=== PATIENT | female | born 1950 | race Caucasian/White ===

== ENCOUNTER 2020-05-31 08:43 | Day surgery (SDC) | payer MEDICARE, BC ==
[2020-05-30 13:32] LABS: BASOPHILS % (AUTO) 0.6 % (0-1); EOSINOPHILS # (AUTO) 0.1 X10'3 (0-0.9); HEMATOCRIT 43.6 % (35.0-45.0); HEMOGLOBIN 14.1 g/dl (12.0-16.0); LYMPHOCYTES # (AUTO) 3.3 X10'3 (1.1-4.8); LYMPHOCYTES % (AUTO) 45.5 % (21-51); MEAN CORPUSCULAR HEMOGLOBIN 26.1 PG (27.0-31.0); MEAN CORPUSCULAR HGB CONC 32.3 g/dL (33.0-36.5); MEAN PLATELET VOLUME 10.3 FL (7.4-10.4); MONOCYTES # (AUTO) 0.5 X10'3 (0-0.9); MONOCYTES % (AUTO) 7.5 % (2-12); NEUTROPHILS # (AUTO) 3.3 X10'3 (1.8-7.7); NEUTROPHILS % (AUTO) 45.4 % (42-75); PLATELET COUNT 247 X10'3 (140-440); RED BLOOD COUNT 5.38 X10'6 (4.20-5.60); RED CELL DISTRIBUTION WIDTH 14.9 % (11.5-14.5); WHITE BLOOD COUNT 7.3 X10'3 (4.5-11.0)
[2020-05-30 13:43] LABS: PARTIAL THROMBOPLASTIN TIME 28 SECONDS (22-32)
[2020-05-30 13:45] LABS: ALANINE AMINOTRANSFERASE 53 U/L (12-78); ALBUMIN/GLOBULIN RATIO 1.1 (1.1-1.5); ALKALINE PHOSPHATASE 123 IU/L (46-116); ANION GAP 6 (8-16); ASPARTATE AMINO TRANSFERASE 30 U/L (10-37); BILIRUBIN,TOTAL 0.6 MG/DL (0.1-1.0); BLOOD UREA NITROGEN 9 MG/DL (7-18); BUN/CREATININE RATIO 12.3 (6.6-38.0); CHLORIDE 105 MMOL/L (99-107); CREATININE 0.73 MG/DL (0.40-0.90); GLUCOSE 95 MG/DL (70-104); POTASSIUM 3.9 MMOL/L (3.5-5.1); SODIUM 139 MMOL/L (135-145); TOTAL CARBON DIOXIDE 27.6 MMOL/L (24-32); TOTAL PROTEIN 7.7 G/DL (6.4-8.2); eGFR 79 ML/MIN
[2020-05-31] VITALS (10 sets, daily range): BP systolic 114–144; BP diastolic 61–93
[~2020-05-31] VITALS: Ht 170.2 cm; Wt 66.2 kg
[~2020-05-31 08:43] MED LIST: AMOX125S10 PO; ASPI-1009 PO; ATEN-169 PO; ESCI20TA29 PO; LEVO88TA28 PO; LOSA25TA96 PO; NITR0.4T51 SL; PRED10TA PO; ROSU20TA2 PO; TRAZ-91 PO
[2020-05-31] MEDS ORDERED: LORazepam 0.5 MG tablet PO PRN (09:05)
[2020-05-31] MEDS ORDERED: nitroGLYCERIN 0.4mg SUBLingual tab SL PRN (09:05)
[2020-05-31] MEDS ORDERED: diphenhydrAMINE 25mg capsule PO PRN (09:05)
[2020-05-31] MEDS ORDERED: normal saline 1,000 ML IV SCH (09:05)
[2020-05-31] MEDS ORDERED: NITR0.4T48 SL (09:20)
[2020-05-31] MEDS ORDERED: iron (09:20)
[2020-05-31] MEDS ORDERED: ALBU8HFA PO (09:20)
[2020-05-31] MEDS ORDERED: midazolam 2 mg/2 ml injection ONE (09:49)
[2020-05-31] MEDS ORDERED: fentaNYL/PF 50MCG/1 ML 2ML syringe ONE (09:49)
[2020-05-31] MEDS ORDERED: LIDOcaine 1% (10mg/ml)w/preservative injection 20ml MDV ONE (09:49)
[2020-05-31] MEDS ORDERED: iohexol 350 MG/ML 50ML vial IV ONE (09:50)
[2020-05-31] MEDS ORDERED: iohexol 350MG/ML 100ml bottle IV ONE (09:50)
[2020-05-31] MEDS ORDERED: HYDROcodone/acetaminophen 5mg/325mg tablet PO PRN (11:35)
[2020-05-31] MEDS ORDERED: HYDROcodone/acetaminophen 10/325mg tab PO PRN (11:35)
[2020-05-31] MEDS ORDERED: ondansetron/PF 4mg/2ml inj IV PRN (11:35)
[2020-05-31] MEDS ORDERED: proCHLORperazine 10 MG/2 ml inj IV PRN (11:35)
[2020-05-31] MEDS ORDERED: OXAZEpam 15mg capsule PO PRN (11:35)
== END 2020-05-31 16:55 | disposition home or self-care (01) ==
LOC: SSTAY O 08:43
PROVIDERS: ATTEND Internal Medicine Cardiovascular Disease
DX: R94.39 Abnormal result of other cardiovascular function study (principal); I25.10 Atherosclerotic heart disease of native coronary artery without angina pectoris; F32.9 Major depressive disorder, single episode, unspecified; G43.909 Migraine, unspecified, not intractable, without status migrainosus; K21.9 Gastro-esophageal reflux disease without esophagitis; F41.1 Generalized anxiety disorder; I44.7 Left bundle-branch block, unspecified; J44.9 Chronic obstructive pulmonary disease, unspecified; I10 Essential (primary) hypertension; E78.5 Hyperlipidemia, unspecified; Z79.01 Long term (current) use of anticoagulants; Z79.899 Other long term (current) drug therapy; Z90.710 Acquired absence of both cervix and uterus; Z98.890 Other specified postprocedural states; Z88.5 Allergy status to narcotic agent
CPT/HCPCS: 36415; 71046; 80053; 85025; 85610; 85730; 93458; 99152; 99153; C1760; C1769; J1644; J2001; J2250; J3010; J7030; Q0163; Q9967; A4620